=== PATIENT | male | born 1980 | race Caucasian/White ===

== ENCOUNTER → 2018-05-04 | Outpatient (CLI) | payer OTHER ==
[2018-05-04 12:32] LABS: BASO # 0.1 x10^3/uL (0.0-0.2); BASO % 1 % (0-3); EOS # 0.2 x10^3/uL (0.0-0.7); EOS % 3 % (0-3); HEMATOCRIT 46.6 % (39.0-53.0); HEMOGLOBIN 15.5 g/dL (13.0-17.5); LYMPH # 1.4 x10^3/uL (1.0-4.8); LYMPH % 21 % (24-48); MEAN CORPUSCULAR HEMOGLOBIN 29 pg (25-35); MEAN CORPUSCULAR HGB CONC 33 g/dL (31-37); MEAN CORPUSCULAR VOLUME 86 fL (79-100); MONO # 0.3 x10^3/uL (0.0-1.1); MONO % 5 % (0-9); NEUT # 4.7 x10^3uL (1.8-7.7); NEUT % 70 % (31-73); PLATELET COUNT 264 x10^3/uL (140-400); RED BLOOD COUNT 5.44 x10^6/uL (4.30-5.70); RED CELL DISTRIBUTION WIDTH 12.8 % (11.5-14.5); WHITE BLOOD COUNT 6.7 x10^3/uL (4.0-11.0)
[2018-05-04 12:50] LABS: ALBUMIN 3.5 g/dL (3.4-5.0); ALBUMIN/GLOBULIN RATIO 0.9 (1.0-1.7); CALCIUM 8.5 mg/dL (8.5-10.1); GFR 84.5; POTASSIUM 3.8 mmol/L (3.5-5.1); TOTAL BILIRUBIN 0.5 mg/dL (0.2-1.0); TOTAL PROTEIN 7.6 g/dL (6.4-8.2)
[2018-05-05 13:33] LABS: FREE T4 1.07 ng/dL (0.76-1.46); THYROID STIM HORMONE (TSH) 0.826 uIU/mL (0.358-3.740)
== END | disposition home or self-care (01) ==
LOC: LAB 12:09
DX: F31.81 Bipolar II disorder (principal); Z79.899 Other long term (current) drug therapy
CPT/HCPCS: 36415; 80053; 82306; 84439; 84443; 85025

== ENCOUNTER → 2019-06-20 | Outpatient (CLI) | payer OTHER ==
--- NOTE | 2019-06-20 15:51 | RAD ---
EXAM: Bilateral hands, 2 views. HISTORY: Pain. COMPARISON: None. FINDINGS: 2 views of both hands are obtained. There is no fracture, dislocation or subluxation. IMPRESSION: No acute osseous finding. Electronically signed by: Rajwinder Kovacs MD (06/20/2019 3:48 PM) [facility] [place]
== END | disposition home or self-care (01) ==
LOC: PMG 13:49
PROVIDERS: ATTEND Registered Nurse
DX: M79.641 Pain in right hand (principal); M79.642 Pain in left hand
CPT/HCPCS: 73120

== ENCOUNTER 2019-09-09 05:08 | Emergency (ER) | payer OTHER ==
[~2019-09-09] VITALS: Ht 180.3 cm; Wt 116.3 kg
--- NOTE | 2019-09-09 05:26 | PHYS DOC ---
Past History Past Medical History: Bipolar, Kidney Stones Additional Past Medical Histor: hayfever (JAREN NAVARRO DO) Past Surgical History: No Surgical History (JAREN NAVARRO DO) Alcohol Use: None (JAREN NAVARRO DO) General Adult EDM: Chief Complaint: FLANK PAIN HPI: HPI: 39-year-old male presents with sudden onset right flank pain. The patient woke up about 3 hours ago with this flank pain. It is a deep cramping sensation. The patient has had kidney stones before and they felt similar. He has always passed them and never had a stent or lithotripsy. He denies fever chills. He has no reason I think he has had a musculoskeletal injury. He denies falls or overuse. He has had an adverse reaction to Percocet in the past, causing him to hallucinate. His last kidney stone was about 4 years ago. (JAREN NAVARRO DO) Review of Systems: Review of Systems: Constitutional: Denies fever or chills Eyes: Denies change in visual acuity HENT: Denies nasal congestion or sore throat Respiratory: Denies cough or shortness of breath Cardiovascular: Denies chest pain or edema GI: Denies abdominal pain, nausea, vomiting, bloody stools or diarrhea : Denies dysuria Musculoskeletal: Right flank pain Integument: Denies rash Neurologic: Denies headache, focal weakness or sensory changes Endocrine: Denies polyuria or polydipsia Lymphatic: Denies swollen glands Psychiatric: Denies depression or anxiety (JAREN NAVARRO DO) Heart Score: Risk Factors: Risk Factors: DM, Current or recent (<one month) smoker, HTN, HLP, family history of CAD, obesity. Risk Scores: Score 0 - 3: 2.5% MACE over next 6 weeks - Discharge Home Score 4 - 6: 20.3% MACE over next 6 weeks - Admit for Clinical Observation Score 7 - 10: 72.7% MACE over next 6 weeks - Early Invasive Strategies (JAREN NAVARRO DO) Current Medications: Current Meds: Current Medications Medications (Trade) Dose Ordered Sig/Alethea Start Time Stop Time Status Last Admin Dose Admin Ketorolac Tromethamine (Toradol 30mg Vial) 30 mg 1X ONCE 09/09/19 05:30 09/09/19 05:31 UNV Sodium Chloride 1,000 ml @ 1,000 mls/hr 1X ONCE 09/09/19 05:30 4/17/20 06:29 UNV (JAREN NAVARRO DO) Physical Exam: PE: Constitutional: Well developed, well nourished, mild acute distress, non-toxic appearance. [] HENT: Normocephalic, atraumatic, bilateral external ears normal, oropharynx moist, no oral exudates, nose normal. [] Eyes: PERRLA, EOMI, conjunctiva normal, no discharge. [] Neck: Normal range of motion, no tenderness, supple, no stridor. [] Cardiovascular: Heart rate regular rhythm, no murmur [] Lungs & Thorax: Bilateral breath sounds clear to auscultation [] Abdomen: Bowel sounds normal, soft, no tenderness, no masses, no pulsatile masses. [] Skin: Warm, dry, no erythema, no rash. [] Back: No tenderness, moderate right CVA tenderness. [] Extremities: No tenderness, no cyanosis, no clubbing, ROM intact, no edema. [] Neurologic: Alert and oriented X 3, normal motor function, normal sensory function, no focal deficits noted. [] Psychologic: Affect normal, judgement normal, mood normal. [] (JAREN NAVARRO DO) Current Patient Data: Vital Signs: Vital Signs Date Time Temp Pulse Resp B/P (MAP) Pulse Ox O2 Delivery O2 Flow Rate FiO2 09/09/19 05:08 98.2 73 20 149/82 (104) 95 Room Air (JAREN NAVARRO DO) EKG: EKG: [] (JAREN NAVARRO DO) Radiology/Procedures: Radiology/Procedures: [] (JAREN NAVARRO DO) Radiology/Procedures: EXAM: CT Abdomen and Pelvis without IV contrast CLINICAL HISTORY: Right flank pain, history of kidney stones. COMPARISON: none TECHNIQUE: Helical CT of the abdomen and pelvis was performed without the administration of IV contrast. Axial, coronal and sagittal reformatted images were generated. ---PQRS compliance statement - One or more of the following individualized dose reduction techniques were utilized for this study: 1. Automated exposure control 2. Adjustment of the mA and/or kV according to patient size 3. Use of iterative reconstruction technique--- FINDINGS: Lack of intravenous contrast limits evaluation of solid organs, vasculature, and lymph nodes. Lower chest: Scattered calcified granulomas bilaterally. Abdomen and pelvis: Liver and biliary system: Subcentimeter hypodense right hepatic lobe lesion, too small to accurately characterize. Gallbladder is normal. No biliary ductal dilatation. Spleen: Unremarkable Pancreas: Unremarkable Adrenal glands: Unremarkable Kidneys: No focal renal lesion. Nonobstructing right lower pole renal calculus. A 3 mm calculus is seen within the distal right ureter (series 2 image 131). Lymph nodes/retroperitoneum: No abdominal or pelvic lymphadenopathy. Vessels: Aorta is normal in caliber. Bowel/Peritoneal cavity: Appendix is normal. Moderate colonic stool content is seen. A few colonic diverticula are noted. No evidence for acute diverticulitis. No abdominal or pelvic ascites. Abdominal wall: Fat-containing bilateral inguinal hernias are seen. Small fat-containing periumbilical hernia is noted. Bladder: Mild bladder wall thickening, nonspecific but may be seen with cystitis. Bones: Osseous structures are grossly unremarkable. IMPRESSION: 3 mm calculus within the distal right ureter. No right hydronephrosis or hydroureter. Mild bladder wall thickening likely cystitis. (MONTSERRAT WEATHERS DO) Course & Med Decision Making: Course & Med Decision Making Pertinent Labs and Imaging studies reviewed. (See chart for details) I have ordered a CT of the abdomen and pelvis, a liter of normal saline, and 30 mg of Toradol. If this does not control his pain, I will add Zofran and morphine. The patient has a distal, 3 mm right kidney stone that is nonobstructing. I have given the patient Zofran and 4 mg of morphine. His labs are still pending. If his urinalysis does not show infection, the patient will go home. I will discharge him with Orlando 5/325. [] (JAREN NAVARRO DO) Course & Med Decision Making ED course: Evaluation reveals a 39-year-old male with right flank pain. He had a 3 mm distal stone. He was given morphine and fentanyl as well as Toradol and Flomax when he was in the emergency department this did help alleviate his symptoms. He will be prescribed Orlando and Cipro to take at home. (MONTSERRAT WEATHERS DO) Dragon Disclaimer: Dragon Disclaimer: This electronic medical record was generated, in whole or in part, using a voice recognition dictation system. (JAREN NAVARRO DO) Departure Departure: Impression: Primary Impression: Kidney stone on right side Disposition: HOME, SELF-CARE Condition: STABLE Referrals: [facility] (PCP) Patient Instructions: Kidney Stones, [id number] Scripts Ciprofloxacin Hcl (CIPRO) 500 Mg Tablet 1 TAB PO BID for UTI, #14 TAB Prov: MONTSERRAT WEATHERS DO 09/09/19 Hydrocodone Bit/Acetaminophen (NORCO 5-325 TABLET) 1 Each Tablet 1 TAB PO PRN Q6HRS PRN for PAIN, #14 TAB 0 Refills Prov: JAREN NAVARRO DO 09/09/19 JAREN NAVARRO DO Sep 09, 2019 05:26 MONTSERRAT WEATHERS DO Sep 09, 2019 07:36
[2019-09-09 05:43] LABS: BASO # 0.1 x10^3/uL (0.0-0.2); BASO % 1 % (0-3); EOS # 0.4 x10^3/uL (0.0-0.7); EOS % 7 % (0-3); HEMATOCRIT 45.4 % (39.0-53.0); HEMOGLOBIN 15.1 g/dL (13.0-17.5); LYMPH # 1.8 x10^3/uL (1.0-4.8); LYMPH % 33 % (24-48); MEAN CORPUSCULAR HEMOGLOBIN 29 pg (25-35); MEAN CORPUSCULAR HGB CONC 33 g/dL (31-37); MEAN CORPUSCULAR VOLUME 88 fL (79-100); MONO # 0.5 x10^3/uL (0.0-1.1); MONO % 9 % (0-9); NEUT # 2.8 x10^3uL (1.8-7.7); NEUT % 51 % (31-73); PLATELET COUNT 233 x10^3/uL (140-400); RED BLOOD COUNT 5.18 x10^6/uL (4.30-5.70); WHITE BLOOD COUNT 5.5 x10^3/uL (4.0-11.0)
[2019-09-09] MEDS ORDERED: IV NORMAL SALINE 1,000ML 1,000 ML IV ONE (05:45)
[2019-09-09] MEDS ORDERED: KETOROLAC 30 MG/ML VIAL. IVP ONE (05:45)
--- NOTE | 2019-09-09 05:49 | RAD ---
EXAM: CT Abdomen and Pelvis without IV contrast CLINICAL HISTORY: Right flank pain, history of kidney stones. COMPARISON: none TECHNIQUE: Helical CT of the abdomen and pelvis was performed without the administration of IV contrast. Axial, coronal and sagittal reformatted images were generated. ---PQRS compliance statement - One or more of the following individualized dose reduction techniques were utilized for this study: 1. Automated exposure control 2. Adjustment of the mA and/or kV according to patient size 3. Use of iterative reconstruction technique--- FINDINGS: Lack of intravenous contrast limits evaluation of solid organs, vasculature, and lymph nodes. Lower chest: Scattered calcified granulomas bilaterally. Abdomen and pelvis: Liver and biliary system: Subcentimeter hypodense right hepatic lobe lesion, too small to accurately characterize. Gallbladder is normal. No biliary ductal dilatation. Spleen: Unremarkable Pancreas: Unremarkable Adrenal glands: Unremarkable Kidneys: No focal renal lesion. Nonobstructing right lower pole renal calculus. A 3 mm calculus is seen within the distal right ureter (series 2 image 131). Lymph nodes/retroperitoneum: No abdominal or pelvic lymphadenopathy. Vessels: Aorta is normal in caliber. Bowel/Peritoneal cavity: Appendix is normal. Moderate colonic stool content is seen. A few colonic diverticula are noted. No evidence for acute diverticulitis. No abdominal or pelvic ascites. Abdominal wall: Fat-containing bilateral inguinal hernias are seen. Small fat-containing periumbilical hernia is noted. Bladder: Mild bladder wall thickening, nonspecific but may be seen with cystitis. Bones: Osseous structures are grossly unremarkable. IMPRESSION: 3 mm calculus within the distal right ureter. No right hydronephrosis or hydroureter. Mild bladder wall thickening likely cystitis. Electronically signed by: Karan Marshall MD (09/09/2019 5:47 AM) [facility]
[2019-09-09 05:52] LABS: CALCIUM 8.7 mg/dL (8.5-10.1); CREATININE 1.2 mg/dL (0.7-1.3); GFR 68.1; POTASSIUM 3.7 mmol/L (3.5-5.1)
[2019-09-09 05:58] LABS: ALBUMIN 3.7 g/dL (3.4-5.0); TOTAL BILIRUBIN 0.5 mg/dL (0.2-1.0); TOTAL PROTEIN 7.5 g/dL (6.4-8.2)
[2019-09-09] MEDS ORDERED: ONDANSETRON PF 4 MG/2 ML VIAL. IVP ONE (06:00)
[2019-09-09] MEDS ORDERED: MORPHINE SULFATE 4 MG/ML DISP.SYRIN. IV ONE (06:00)
[2019-09-09] MEDS ORDERED: HYDR-3165 PO (06:01)
[2019-09-09] MEDS ORDERED: TAMSULOSIN 0.4 MG CAP.ER.24H. PO ONE (06:45)
[2019-09-09] MEDS ORDERED: CIPR500T94 PO (07:35)
[2019-09-09 07:49] VITALS: BP 125/89
[2019-09-09 07:58] LABS: BILIRUBIN,URINE NEG (NEG); CLARITY,URINE HAZY; COLOR,URINE AMBER; GLUCOSE,URINE NEG (NEG); NITRITE,URINE NEG (NEG); RBC,URINE >40 /HPF (0-2)
[2019-09-09 07:59] LABS: BACTERIA,URINE 0 /HPF (0-FEW); SQUAMOUS EPITHELIAL CELL,UR OCC /LPF
== END 2019-09-09 07:50 | disposition home or self-care (01) ==
LOC: ER 05:08
DX: N20.0 Calculus of kidney (principal); F31.9 Bipolar disorder, unspecified; Z87.442 Personal history of urinary calculi
CPT/HCPCS: 36415; 74176; 80053; 81001; 85025; 96374; 96375; 96376; 99284; J1885; J2270; J2405; J3010; J7030